=== PATIENT | female | born 1955 | race Caucasian/White ===

== ENCOUNTER → 2024-12-16 09:27 | Outpatient (REF) | payer MEDICARE, SELFPAY | LOC: RAD 09:27 | PROVIDERS: ATTENDING PHYSICIAN Internal Medicine Rheumatology; FAMILY PHYSICIAN Family Medicine | DX: M81.0 Age-related osteoporosis without current pathological fracture (principal); M54.50 Low back pain, unspecified; R26.89 Other abnormalities of gait and mobility | CPT/HCPCS: 72110; 77080 ==